=== PATIENT | male | born 1960 | race African-American/Black ===

== ENCOUNTER → 2017-01-17 | Outpatient (CLI) | payer MEDICAID ==
--- NOTE | 2017-01-17 13:15 | DI ---
INDICATION: ITS.REASON: R05 COUGH; R63.4 WEIGHT LOSS PROCEDURE: CHEST 2-VIEWS UPRIGHT (PA \T\ LAT) Encounter: Initial COMPARISON: None FINDINGS: Scarring or emphysema in the right apex. Lungs are otherwise clear. There is no pleural effusion or pneumothorax. Scattered calcified granulomas in the left infrahilar region. The heart size, mediastinal contours and pulmonary vascularity are within normal limits. There is no significant skeletal abnormality. IMPRESSION: No acute cardiopulmonary disease. .
== END ==
LOC: IMA 12:34
PROVIDERS: ATTEND Nurse Practitioner Family
DX: R91.8 Other nonspecific abnormal finding of lung field (principal); R05 Cough; R63.4 Abnormal weight loss